=== PATIENT | male | born 1950 | race Caucasian/White ===

== ENCOUNTER 2017-06-26 10:29 | Emergency (ER) | payer OTHER ==
[~2017-06-26] VITALS: Ht 182.9 cm; Wt 104.3 kg
--- NOTE | ~2017-06-26 | EKG ---
[address] [address] [place] [address] ELECTROCARDIOGRAM REPORT Name: JALIL AVILES Room #: [facility] [id number] Admission: 06/26/17 Attend Phys: Discharge: 06/26/17 Date of : 46 Report #: [id number] THIS REPORT FOR: //name// [facility] ED Test Date: 2017-06-26 Test Time: 10:49:41 Pat Name: JALIL STEFAN Department: Room: Gender: Wigs Salesperson: Kalyani VILLARREAL : 1950 Requested By: Alicia Mcdonnell Order Number: [id number] MD: Josh Parnell Measurements Intervals [place] Rate: 60 P: -52 WV: 159 QRS: -70 QRSD: 179 T: 60 QT: 457 QTc: 457 Interpretive Statements Sinus or ectopic atrial rhythm Multiple ventricular premature complexes Left axis deviation Left bundle branch block No previous ECGs available for comparison Electronically Signed On 06-27-2017 13:05:15 CDT by Josh Parnell [email or web address] <ELECTRONICALLY SIGNED> By: Josh Parnell MD, [facility] 06/27/17 1305 D: 08/9 1049 Josh Parnell MD, FACC /EPI
[~2017-06-26 10:29] MED LIST: ALBUTEROL2.5 MG/0.5; ALBUTEROL2.5 MG/31 INH; ASPIRIN EC81 M1 PO; BAYER CHEWABLE81 MG PO; BISOPROLOL FUMA10 MG PO; CIPRO250 M1 PO; DEMADEX20 MG PO; DIABETA 5MG TABL5 MG PO; DULCOLAX5 MG PO; DUONEB 2.5-0.5 M3 ML INH; FISH OIL 1,001000 M1 PO; GABAPENTIN 100100 MG; GAS RELIEF80 MG PO; GLUCOTROL5 MG PO; HYDROCHLOROTH12.5 M1 PO; HYDROCODONE-AP1 EAC6 PO; LEVEMIR; LEVEMIR SUBQ; LIPITOR40 MG PO; LOPRESSOR25 PO; MICARDIS HCT 81 EACH PO; MIRALAX255 GM PO; MUCINEX TA600 MG/TA2 PO; NABUMETONE 500500 M1; NABUMETONE 500500 M1 PO; NORVASC 5 MG TAB5 MG PO; NOVOLOG100 UNIT/1; NOVOLOG100 UNIT/1 SUBQ; ONDANSETRON HCL4 M2; PHOSPHORUS PO; PROBIOTIC1 EAC1; PROTONIX40 M1 PO; REGLAN 10 MG TA10 MG; RENA-VITE RX T1 EACH PO; RENAL-VITE TAB0.8 MG; RENVELA800 MG PO; TYLENOL325 MG PO; VITAMIN D250000 UNIT PO
[2017-06-26 12:06] LABS: HEMOGLOBIN 13.1 gm/dL (14.0-18.0); MANUAL DIFF YES; MCHC 32.8 g/dL (28.0-37.0); MCV 88.6 fL (80.0-100.0); PLATELET COUNT 234 thou/uL (150-400); RBC 4.51 mil/uL (4.50-6.00); RDW 16.8 % (10.5-14.5); WBC 10.7 thou/uL (4.0-11.0)
[2017-06-26 12:14] LABS: CALCIUM 9.5 mg/dL (8.5-10.1); CREATININE 4.9 mg/dL (0.7-1.3); MAGNESIUM 2.1 mg/dL (1.8-2.4)
[2017-06-26 13:09] LABS: ABSOLUTE NEUTROPHILS 9.1 thou/uL (1.4-8.2); PLATELET ESTIMATE NORMAL; TOTAL CELL COUNT 100
== END 2017-06-26 16:05 | disposition home or self-care (01) ==
LOC: ER 10:29
PROVIDERS: Emergency Medicine
DX: R41.0 Disorientation, unspecified (principal); I12.0 Hypertensive chronic kidney disease with stage 5 chronic kidney disease or end stage renal disease; E11.22 Type 2 diabetes mellitus with diabetic chronic kidney disease; N18.6 End stage renal disease; E78.00 Pure hypercholesterolemia, unspecified; J45.909 Unspecified asthma, uncomplicated; Z86.2 Personal history of diseases of the blood and blood-forming organs and certain disorders involving the immune mechanism; Z99.2 Dependence on renal dialysis; Z86.018 Personal history of other benign neoplasm